=== PATIENT | female | born 1930 | race Caucasian/White ===

== ENCOUNTER 2017-02-19 17:54 | Inpatient (IN) | payer OTHER, BC ==
[~2017-02-19] VITALS: Ht 154.9 cm; Wt 83.5 kg
--- NOTE | ~2017-02-19 | EKG ---
[address] [place] [address] ELECTROCARDIOGRAM REPORT Name: LEVY PÉREZ Jocelyn Room #: 170-8 ADM IN M.R.#: [id number] Admission: 02/19/17 Attend Phys: Rocco Kendrick MD Discharge: Date of : 32 Report #: [id number] THIS REPORT FOR: //name// [facility] ED Test Date: 2017-02-19 Test Time: 19:23:23 Pat Name: LEVY PÉREZ Department: Room: 170 Gender: F High School Mathematics Teacher: MZOOK : [id number] Requested By: Shawn Valenzuela Order Number: [id number] MD: Robbie Vasquez Measurements Intervals [place] Rate: 78 P: -39 SC: 169 QRS: 152 QRSD: 95 T: 51 QT: 392 QTc: 447 Interpretive Statements Sinus rhythm Abnormal R-wave progression, late transition Inferior infarct, old Lateral leads are also involved Compared to ECG 03/23/2016 09:20:17 Left posterior fascicular block no longer present Myocardial infarct finding still present Electronically Signed On 02-19-2017 23:28:47 AFTER SCHOOL TUTOR by Robbie Vasquez [email or web address] <ELECTRONICALLY SIGNED> By: Robbie Vasquez MD 02/19/17 2328 22 22 Robbie Vasquez MD /EPI
[~2017-02-19 17:54] MED LIST: ACETAMINOPHEN325 M1 PO; AMLODIPINE BESY10 MG PO; ANTI-DIARRHEAL2 M1 PO; ASPIR 8181 MG PO; B12INJ PO; BENADRYL25 MG PO; BISAC-EVAC10 MG RECTAL; CELEXA 10 MG TA10 M1 PO; CRANBERRY500 M1 PO; DUONEB 2.5-0.5 M3 ML INH; FLORANEX PACKET1 GM PO; HEPARIN 50500 UNIT/5 SUBQ; LISINOPRIL10 MG PO; LISINOPRIL20 MG PO; LOPERAMIDE 2 MG2 M1 PO; LOPRESSOR25 PO; METFORMIN HCL500 MG PO; MILK OF MA2400 MG/10 PO; MIRALAX17 GM PO; MUCINEX TA600 MG/TA2 PO; NORCO 5-325 TA1 EACH PO; OXYBUTYNIN 5 MG5 M2 PO; PREDNISONE 10 M10 MG PO; PRILOSEC2.5 MG PO; PRILOSEC20 MG PO; PROSTATE 2.4 C1 EACH; SENEXON-S TABL1 EACH PO; THEREMS-M1 EACH PO; TRAZODONE HCL100 MG PO; VITAMIN D1000 UNI1 PO; VITAMIN D3400 UNIT PO
[2017-02-19 17:56] VITALS: BP 159/90
[2017-02-19] MEDS ORDERED: ZANTAC 150MG T150 MG PO (18:15)
[2017-02-19] MEDS ORDERED: COLACE100 MG PO (18:16)
[2017-02-19] MEDS ORDERED: METFORMIN HCL500 MG PO (18:17)
[2017-02-19] MEDS ORDERED: FIBER0.4 GM PO (18:19)
[2017-02-19 18:46] LABS: ABSOLUTE NEUTROPHILS 6.6 thou/uL (1.4-8.2); BASOPHILS 0.8 % (0.0-2.0); EOSINOPHILS 0.8 % (0.0-3.0); HEMATOCRIT 39.4 % (37.0-47.0); HEMOGLOBIN 13.2 gm/dL (12.0-15.0); LYMPHOCYTES 20.6 % (24.0-44.0); MCH 32.5 pg (26.0-34.0); MCHC 33.6 g/dL (28.0-37.0); MCV 96.9 fL (80.0-100.0); MONOCYTES 6.8 % (1.0-8.0); PLATELET COUNT 343 thou/uL (150-400); RBC 4.07 mil/uL (4.20-5.00); RDW 13.6 % (10.5-14.5); WBC 9.3 thou/uL (4.0-11.0)
[2017-02-19 18:53] LABS: URINE BILIRUBIN NEGATIVE (Negative); URINE BLOOD NEGATIVE (Negative); URINE CLARITY CLEAR; URINE COLOR YELLOW; URINE GLUCOSE-RANDOM* NEGATIVE (Negative); URINE KETONES TRACE (Negative); URINE LEUKOCYTES-REFLEX NEGATIVE (Negative); URINE PROTEIN (DIPSTICK) TRACE (Negative); URINE SPECIFIC GRAVITY 1.025 (1.005-1.035); URINE UROBILINOGEN 0.2 E.U./dl (0.2-1.0)
[2017-02-19 18:54] LABS: URINE NITRITE-REFLEX POSITIVE (Negative)
[2017-02-19 18:56] LABS: ANION GAP 10 mmol/L (7-16); BUN 12 mg/dL (7-18); CALCIUM 9.7 mg/dL (8.5-10.1); CHLORIDE 103 mmol/L (98-107); CO2 26 mmol/L (21-32); GLUCOSE 182 mg/dL (74-106); SODIUM 139 mmol/L (136-145)
[2017-02-19 19:04] LABS: TROPONIN-I < 0.04 ng/mL (<0.06)
[2017-02-19 19:06] LABS: BACTERIA-REFLEX >30 Many /HPF (None Seen); CASTS None Seen /LPF (None Seen); CRYSTALS None Seen /LPF (None Seen); SQUAMOUS 0-3 Few /LPF (0-3); URINE RBC None Seen /HPF (0-2); URINE WBC-REFLEX 0-5 Rare /HPF (0-5)
[2017-02-20 13:06] VITALS: BP 120/50
[2017-02-20 14:13] VITALS: BP 120/50
[2017-02-20 14:38] VITALS: BP 116/50
[2017-02-20 15:20] VITALS: BP 116/53
[2017-02-20 21:00] VITALS: BP 137/70
[2017-02-21 04:34] VITALS: BP 127/66
[2017-02-21 06:41] LABS: ABSOLUTE NEUTROPHILS 4.3 thou/uL (1.4-8.2); BASOPHILS 0.7 % (0.0-2.0); EOSINOPHILS 3.4 % (0.0-3.0); HEMATOCRIT 39.9 % (37.0-47.0); HEMOGLOBIN 13.1 gm/dL (12.0-15.0); LYMPHOCYTES 29.9 % (24.0-44.0); MCH 32.3 pg (26.0-34.0); MCHC 32.9 g/dL (28.0-37.0); MCV 98.2 fL (80.0-100.0); MONOCYTES 7.1 % (1.0-8.0); PLATELET COUNT 324 thou/uL (150-400); POLYS 58.9 % (36.0-66.0); RBC 4.06 mil/uL (4.20-5.00); RDW 13.7 % (10.5-14.5); WBC 7.3 thou/uL (4.0-11.0)
[2017-02-21 06:49] LABS: CALCIUM 8.9 mg/dL (8.5-10.1); CREATININE 1.2 mg/dL (0.6-1.0); POTASSIUM 4.1 mmol/L (3.5-5.1)
[2017-02-21 08:35] VITALS: BP 166/65
[2017-02-21 11:56] LABS: TSH 0.814 uIU/mL (0.358-3.740)
[2017-02-21 14:55] VITALS: BP 121/49
[2017-02-21 19:47] VITALS: BP 144/55
[2017-02-22 03:46] VITALS: BP 144/62
[2017-02-22 06:12] LABS: CALCIUM 8.8 mg/dL (8.5-10.1); CREATININE 0.9 mg/dL (0.6-1.0); POTASSIUM 4.1 mmol/L (3.5-5.1)
[2017-02-22 06:34] LABS: ABSOLUTE NEUTROPHILS 4.8 thou/uL (1.4-8.2); BASOPHILS 0.6 % (0.0-2.0); EOSINOPHILS 2.1 % (0.0-3.0); HEMOGLOBIN 12.1 gm/dL (12.0-15.0); LYMPHOCYTES 29.1 % (24.0-44.0); MCHC 33.7 g/dL (28.0-37.0); MCV 97.8 fL (80.0-100.0); MONOCYTES 5.9 % (1.0-8.0); PLATELET COUNT 315 thou/uL (150-400); POLYS 62.3 % (36.0-66.0); RBC 3.68 mil/uL (4.20-5.00); RDW 13.1 % (10.5-14.5); WBC 7.8 thou/uL (4.0-11.0)
[2017-02-22 08:00] VITALS: BP 184/104
[2017-02-22] MEDS ORDERED: KEFLEX500 M1 PO (08:44)
[2017-02-22 10:05] VITALS: BP 144/62
== END 2017-02-22 10:49 | DRG 871 ==
LOC: ER 17:54 → EROBS 21:06 → 4E 21:06 → EROBS 02-20 01:45 → 4E 02-20 14:55
PROVIDERS: Emergency Medicine; Family Medicine; Registered Nurse
DX: A41.9 Sepsis, unspecified organism (principal); G92 Toxic encephalopathy; N39.0 Urinary tract infection, site not specified; Z96.652 Presence of left artificial knee joint; Z96.641 Presence of right artificial hip joint; E11.9 Type 2 diabetes mellitus without complications; I10 Essential (primary) hypertension; F32.9 Major depressive disorder, single episode, unspecified; Z88.8 Allergy status to other drugs, medicaments and biological substances; Z79.899 Other long term (current) drug therapy; Z28.21 Immunization not carried out because of patient refusal
CPT/HCPCS: 10084

== ENCOUNTER 2019-01-18 18:56 | Emergency (ER) | payer OTHER, BC ==
[~2019-01-18] VITALS: Ht 160 cm; Wt 78.7 kg
[~2019-01-18 18:56] MED LIST changes: +COLACE100 MG PO; +FIBER0.4 GM PO; +KEFLEX500 M1 PO; +ZANTAC 150MG T150 MG PO
[2019-01-18 19:21] LABS: URINE BILIRUBIN NEGATIVE (Negative); URINE BLOOD NEGATIVE (Negative); URINE CLARITY SL CLOUDY; URINE COLOR YELLOW; URINE GLUCOSE-RANDOM* NEGATIVE (Negative); URINE KETONES NEGATIVE (Negative); URINE LEUKOCYTES-REFLEX TRACE (Negative); URINE NITRITE-REFLEX POSITIVE (Negative); URINE PROTEIN (DIPSTICK) NEGATIVE (Negative); URINE SPECIFIC GRAVITY >= 1.030 (1.005-1.035); URINE UROBILINOGEN 0.2 E.U./dl (0.2-1.0)
[2019-01-18 19:29] LABS: SQUAMOUS 4-10 Moderate /LPF (0-3)
[2019-01-18 19:30] LABS: CASTS None Seen /LPF (None Seen); CRYSTALS None Seen /LPF (None Seen); URINE RBC None Seen /HPF (0-2); URINE WBC-REFLEX 0-5 Rare /HPF (0-5)
[2019-01-18 21:00] LABS: ABSOLUTE NEUTROPHILS 5.4 thou/uL (1.4-8.2); BASOPHILS 0.9 % (0.0-2.0); EOSINOPHILS 2.8 % (0.0-3.0); HEMATOCRIT 37.9 % (37.0-47.0); HEMOGLOBIN 12.4 gm/dL (12.0-15.0); LYMPHOCYTES 26.7 % (24.0-44.0); MCH 31.2 pg (26.0-34.0); MCHC 32.8 g/dL (28.0-37.0); MCV 95.2 fL (80.0-100.0); PLATELET COUNT 287 thou/uL (150-400); POLYS 64.6 % (36.0-66.0); RBC 3.98 mil/uL (4.20-5.00); RDW 13.3 % (10.5-14.5); WBC 8.3 thou/uL (4.0-11.0)
[2019-01-18 21:09] LABS: CALCIUM 9.6 mg/dL (8.5-10.1); POTASSIUM 4.2 mmol/L (3.5-5.1)
[2019-01-18 21:15] LABS: ALBUMIN 3.4 g/dL (3.4-5.0); DIRECT BILIRUBIN 0.2 mg/dL (<0.1-0.3); TOTAL BILIRUBIN 0.4 mg/dL (<0.1-1.0); TOTAL PROTEIN 7.2 g/dL (6.4-8.2)
[2019-01-18] MEDS ORDERED: KEFLEX500 M1 PO (22:42)
[2019-01-18 23:11] VITALS: BP 142/61
== END 2019-01-19 00:42 | disposition home or self-care (01) ==
LOC: ER 18:56
PROVIDERS: Emergency Medicine
DX: N39.0 Urinary tract infection, site not specified (principal); R41.0 Disorientation, unspecified; I10 Essential (primary) hypertension; F32.9 Major depressive disorder, single episode, unspecified; Z96.652 Presence of left artificial knee joint; Z88.6 Allergy status to analgesic agent

== ENCOUNTER 2019-02-13 18:35 | Inpatient (IN) | payer OTHER, BC ==
[~2019-02-13] VITALS: Ht 160 cm; Wt 71.7 kg
[2019-02-13] MEDS ORDERED: ABILIFY 2 MG2 M1 (19:20)
[2019-02-13] MEDS ORDERED: NORVASC10 MG (19:21)
[2019-02-13] MEDS ORDERED: TRAZODONE HCL100 MG (19:22)
[2019-02-13] MEDS ORDERED: LISINOPRIL2.5 MG (19:25)
[2019-02-13 19:48] VITALS: BP 110/44
[2019-02-13 20:00] VITALS: BP 134/72
[2019-02-13 20:01] VITALS: BP 134/78
--- NOTE | 2019-02-13 20:03 | NUR ---
89 YEAR OLD FEMALE ARRIVES TO FLOOR VIA OWN WC ACCOMONIED BY GREENHOUSE OR NURSERY TRANSPLANTER FROM [facility] AT APPROX 1830. IS REPORTED BY HALF-WAY STAFF TO HAVE APPROACHED NURSE ON UNIT STATING "TAKE ME TO THE HOSPITAL I WANT TO " ALSO REPORTED BY HALF-WAY STAFF TO HAVE HAD RECENT MEDICATION REFUSALS AND MADE DELUSIONAL STATEMENTS REGARDING DAUGHTER NIKKI WHO IS DPOA STATING SHE DOESN'T TRUST HER DAUGHTER AND WANTS HER REMOVED FROM PAPERWORK" UPON ARRIVAL TO UNIT IS COOPERATIVE AND PLEASANT DIS HAVE BRIEF EPISODE OF TEARFULNESS STATING "I AM REALLY SICK" WHEN ASKED FOR CLARIFICATION IF THIS WAS PHYSICAL OR MENTAL STATES "NO IT IS NOT MENTAL-I TOLD THEM THAT I WAS DYING SOMETHING IS REALLY WRONG WITH ME NOT THAT I WANTED TO " DENIES ANY CURRENT SI/SH/HI STATING "I BELIEVE IN GOD TOO MUCH" IS ORIENTED TO PERSON AND PLACE AND CONVERSATION IS RELEVENT AND GOAL DIRECTED. VS OBTAINED AND WNL-ASSISTED TO STANDING POSITIONO WITH ASSIST OF TWO AND COCYX ASSESSED PT IS REPORTING PAIN TO BOTTOM-MIDLINE COCYX IS NOTED TO BE EXCORIATED SOME REDDNESS AND AFTER PT VOIDED PERICARE PROVIDED AND BARRIER CREAM APPLIED. DENIES ANY OTHER C/O PAIN/DISCOMFORT-PT STATES UNABLE TO SIGN PAPERWORK AND CONSENTS D/T POOR VISIOIN SO VERBAL CONSNETS OBTAINED FOR TX IN ADDITION TO VISITING CONSENT,RIGHTS AND RESPONSIBILIES REVIEWED WITH PT.
--- NOTE | 2019-02-14 02:30 | NUR ---
ASSUMED CARE FROM DAY SHIFT PT RESTING IN BED, APPEARS CHEERFUL, ALERT ORIENTED X4 , SAT DOWN BEDSIDE PT AND TAKLED WITH PT RERGARDING FEELING OF WANTING TO . PT STATES " DAUGHTER HAVE NOT HAD A RELATIONSHIP WITH HR 40 YEARS AND SHE HAVE BEEN LIVING IN 3 DIFFERENT NURSING HOMES AND HAVE NO FAMILY SUPPORT WHICH MAKES HER VERY DEPRESSED AND INTURN WANT TO ". PT HAVE NO PLAN ON HOW TO CARRY OUT SI, BUT KNOW SHE DONT WANT O LIVE ANY LONGER. PT ALSO EXPRESSED THAT SHE DID NOT WANT DAUGHETR HR DPOA AND WANT TO CHANGE IT TO HER BROTHER SHE THINKS? ENCOUAGEMENT GIVEN AND DISCUSSED PLAN OF CARE, HS PO MEDICATION TAKEN , REFUSED HS SNACK. PT HAVE ASHBY AT SIDE DUE TO SHE IS WHEELCHAIR BOUND. BED ALARM ON FOR SAFETY, PT IN AGREEMENT. WILL WONTINUE WITH FREQ CHECKS FOR SAFETY AND REPORT CHANGES OR ABNORMAL FINDINGS. PT APPREAS TO BE RESTING QUIELTY THROUGHOUT CHECKS.
[2019-02-14 08:14] VITALS: BP 132/67
--- NOTE | 2019-02-14 08:57 | NUR ---
PT REFUSING MEDICATIONS AT THIS TIME. PT STATED THEY ARE WORKING AGAINST HER. SHE STATED SHE GETS DIARRHEA. SHE STATED THAT SHE IS FRUSTRATED AND WANTED TO TALK TO THE DR. PT STAED SHE ISN'T GETTING ANY ANSWERS. PT WOULD LIKE TO HAVE HER DAUGHTER OFF HER DPOA AND NEEDS EVAL. TO SEE IF SHE CAN MAKE THAT DECISION. PT STATED SHE HASN'T TALKED TO HER DAUGHTER IN 40 YEARS. PT STATED SHE IS WORRIED ABOUT THE MEDS. PT STATED SHE REFUSED MEDS BEFORE A BEAUTIFUL SAVIOR.
--- NOTE | 2019-02-14 09:16 | NUR ---
FAUSTO called and spoke with pt's critical access hospital Sheryl [phone] and she stated that her mom has lived at [facility] for 3 years and is expected to d/c back there once she is stable. This pt has had 2 recorded depressive episodes in the last 40 years. Sheryl stated that she usually has a positive relationship with her mother but when she is sick or has a UTI she becomes paranoid, aggressive and especially angry directed at Sheryl. FAUSTO completed the intake assessment and TP. Fausto set up a family meeting on 02/18 at 11:45 am.
[2019-02-14 09:57] VITALS: BP 132/67
--- NOTE | 2019-02-14 13:06 | NUR ---
ENCOURAGED PT TO EAT LUNCH. PT STATED SHE WANTED TO SPEAK TO PSYCHOLOGIST. PT STATED SHE HAS HAD TO BE PERSISTANT TO GET THINGS TO HAPPEN LIKE NOW NOT EATING UNTIL SHE TALKS TO DR. PT STATED SHE GETS UPSET. PT DID DRINK TEA AND FRUIT.
--- NOTE | 2019-02-14 13:55 | EKG ---
[place] [address] [facility] [place] [address] ELECTROCARDIOGRAM REPORT Name: LEVY PÉREZ Room #: 52- ADM IN M.R.#: [id number] Admission: 02/13/19 Attend Phys: Rocco Hensley DO Discharge: Date of : 32 Report #: [id number] THIS REPORT FOR: //name// [facility] Test Date: 2019-02-14 Test Time: 13:47:28 Pat Name: ELVY PÉREZ Department: Room: [facility] B Gender: F Foundation Engineer: Lin REID : [id number] Requested By: Rocco Hensley Order Number: [id number] MD: Marvin Penny Measurements Intervals [place] Rate: 75 P: 5 NC: 182 QRS: 141 QRSD: 98 T: 39 QT: 396 QTc: 443 Interpretive Statements Sinus rhythm Abnormal R-wave progression, late transition Inferior infarct, old Compared to ECG 02/19/2017 19:23:23 No significant changes Electronically Signed On 02-14-2019 13:54:37 DIRECTOR HR COMMUNICATIONS by Marvin Penny [email or web address] <ELECTRONICALLY SIGNED> By: Marvin Penny MD, [facility] 02/14/19 1354 1347 1347 Marvin Penny MD, [facility] /EPI
[2019-02-14 14:23] LABS: ABSOLUTE NEUTROPHILS 7.4 thou/uL (1.4-8.2); BASOPHILS 0.7 % (0.0-2.0); EOSINOPHILS 1.5 % (0.0-3.0); HEMOGLOBIN 14.4 gm/dL (12.0-15.0); LYMPHOCYTES 23.8 % (24.0-44.0); MCH 31.8 pg (26.0-34.0); MCHC 33.4 g/dL (28.0-37.0); MCV 95.2 fL (80.0-100.0); MONOCYTES 5.4 % (1.0-8.0); PLATELET COUNT 264 thou/uL (150-400); POLYS 68.6 % (36.0-66.0); RBC 4.51 mil/uL (4.20-5.00); WBC 10.8 thou/uL (4.0-11.0)
[2019-02-14 14:46] LABS: CALCIUM 9.8 mg/dL (8.5-10.1); CREATININE 1.3 mg/dL (0.6-1.0); POTASSIUM 4.4 mmol/L (3.5-5.1)
[2019-02-14 14:52] LABS: ALBUMIN 3.7 g/dL (3.4-5.0); TOTAL BILIRUBIN 0.4 mg/dL (<0.1-1.0); TOTAL PROTEIN 7.9 g/dL (6.4-8.2)
--- NOTE | 2019-02-14 17:09 | NUR ---
ATTEMPTED TO OBTAIN A UA ON PT VIA CLEAN CATCH. PT ALREADY VOIDED IN BRIEF. PT SAT ON BSC FOR 10 MIN TO TRY TO VOID. PT HAD SOME GAS.
--- NOTE | 2019-02-14 17:15 | NUR ---
PT REFUSING NAMENDA WITH A BIG NO. PT STATED THERE IS OTHER MEDICATION FOR MEMORY. PT STILL TALKING ABOUT NOT TALKING FOR DAUGHTER FOR 40 YRS.
--- NOTE | 2019-02-14 17:24 | NUR ---
PT NOT WANTING TO EAT DINNER. INFORMED PT ABOUT GETTING URINE SAMPLE VIA CATHATER. PT STATED FINE FOR CATHATER TO OBTAIN URINE.
--- NOTE | 2019-02-14 18:00 | NUR ---
PT DIDN'T EAT ANY DINNER. PT TOOK BACK TO ROOM AND A URINE WAS OBTAINED VIA STRAIGHT CATH. PT TOLERATED WELL. PT STATED THE BETADINE WAS COLD. PT STATED THAT SHE HAS BEEN TELLING PEOPLE SHE HAS UTI. PT URINE WAS YELLOW WITH SEDIMENT AND STRONG URINE SMELL.
[2019-02-14 18:27] LABS: URINE BILIRUBIN NEGATIVE (Negative); URINE BLOOD 2+ (Negative); URINE COLOR YELLOW; URINE GLUCOSE-RANDOM* NEGATIVE (Negative); URINE KETONES TRACE (Negative); URINE PROTEIN (DIPSTICK) NEGATIVE (Negative); URINE UROBILINOGEN 0.2 E.U./dl (0.2-1.0)
[2019-02-14 18:28] LABS: URINE LEUKOCYTES-REFLEX 3+ (Negative); URINE NITRITE-REFLEX POSITIVE (Negative)
[2019-02-14 18:29] LABS: URINE CLARITY HAZY
[2019-02-14 18:39] LABS: CASTS None Seen /LPF (None Seen); CRYSTALS None Seen /LPF (None Seen); SQUAMOUS 0-3 Few /LPF (0-3); URINE RBC None Seen /HPF (0-2)
--- NOTE | 2019-02-14 18:44 | NUR ---
NOTIFED DR. GARCIA ABOUT URINE RESULTS.
[2019-02-14 20:17] LABS: TSH 1.803 uIU/mL (0.358-3.740)
[2019-02-14 22:25] VITALS: BP 130/76
--- NOTE | 2019-02-15 01:47 | NUR ---
PATIENT IN BED WHEN CAME ON UNIT AT 1900. SHE IS IRRITABLE TONIGHT AND TALKS IN CIRCLES. SHE TOOK HER MEDS EVEN THOUGH SHE DIDN'T WANT TOO. SHE UNDERSTANDS SHE HAS AN UTI BUT SAYS SHE DOESN'T THINK THE ANTIBIOTIC WILL WORK FOR HER. PATIENT IS INCONTINENT OF B&b. PATIENT USES WC. SHE DENIES PAIN. DOES NOT WANT TO KEEP HER YELLOW SOCKS ON WHEN SLEEPING. A/0 X 3. WENT BACK TO SLEEP AFTER PILLS GIVEN. BED IN LOW POSITON AND BED ALARM ON.
[2019-02-15 07:40] VITALS: BP 103/52
--- NOTE | 2019-02-15 07:45 | NUR ---
PT IN BED AWAKE. PT CONCERNED ABOUT THE UTI AND NEEDING ANTIBIOTICS. PT NEEDED ASSIST TO W/C X2 PERSON. PT ABLE TO BEAR WEIGHT AND PIVOT. PT STILL TALKING ABOUT NOT TALKING TO DAUGHTER FOR 40 YEARS. PT STATED SHE WILL BRING CLOTHES TO HER, BUT NOT TALK TO HER. PT STATED HER DAUGHTER WAS WITH A DRThony AND SOMEONE ELSE IN ONE DAY. PT UPSET AND STATED SHE IS GROWING TO NOT WANT TO TALK TO HER DAUGHTER. PT KNOWS ABOUT THE FAMILY MEETING ON 02/18. ENCOURAGED PT TO EXPRESS HER FEELINGS TO ADVANCED PRACTICE NURSE PSYCHOTHERAPIST AND IN MEETING.
[2019-02-15 07:54] VITALS: BP 103/52
--- NOTE | 2019-02-15 08:50 | NUR ---
PT ASKING ABOUT HER MEDICATION. TRIED TO ADM WHOLE, PT STATED SHE TAKES IN YOGART. CRUSHED MEDS AND PUT IN YOGART. PT STATED THAT SHE KNOWS THERE IS MORE THAN ANTIBIOTIC IN THE YOGART. PT TOOK WITHOUT ANY ISSUES.
--- NOTE | 2019-02-15 16:49 | NUR ---
PT HAS BEEN RESTING SINCE PT HAD US. ATTEMPTED PT TO VOID DURING US. PT UNABLE TO VOID ON OWN. PT STATED THEN SHE WANTED TO REST IN BED INSTEAD OF SITING UP.
--- NOTE | 2019-02-15 16:57 | NUR ---
PT TOOK SPOONFUL OF SEROQUEL 50MG IN PUDDING WITH ASSISTANCE FROM BOOKKEEPER HELEN.
--- NOTE | 2019-02-15 17:15 | NUR ---
PT SITTING AT DINNER TABLE AND DIDN'T WANT TO EAT. ENCOURAGED PT TO EAT SOME YOGART WITH HER MEDS. DIDN'T GIVE GLIPIZIDE DO TO NOT EATING.
[2019-02-15 19:53] VITALS: BP 157/57
[2019-02-16 03:07] LABS: GLYCOHEMOGLOBIN (HGB A1C) 6.3 % (4.8-5.6)
--- NOTE | 2019-02-16 03:51 | NUR ---
care assumed at 1900 patient was in bed awake. patient took meds with alot of encouragement. patient encouraged fluids. patient has a flat affect, poor eye contact, fair grooming and hygiene. patient incontient this shift pericare and barrier cream applied as needed. patient uses a wheelchair. patient needs maximum assistance with adl, bed mobility transfer and toileting. patient in bed asleep at this time breathing regular and unlaboured.
[2019-02-16 05:16] LABS: CALCIUM 9.3 mg/dL (8.5-10.1); CREATININE 1.3 mg/dL (0.6-1.0); POTASSIUM 4.3 mmol/L (3.5-5.1)
[2019-02-16 09:27] VITALS: BP 113/48
--- NOTE | 2019-02-16 13:39 | NUR ---
Was up this morning in dayroom, she ate a few bites of her breakfast, offered yogurt which she did eat, she took most of her medications but refused namenda, antibiotics and stool softner, when questioned why she stated she is just concerned about these drugs, also stated "you are making me worse with this medicine, I wasn't on any of it, and I'm not taking it" made other attempts to get her antibiotics which she still refused, even after explaining her UTI, she just stated "I don't care" she has asked and stated she wants to today, she says she is old and doesn't want to live any longer, she does well answering questions, she is alert and oriented x 2, but say the date on the dry erase board, she refused lunch stated she was not hungry, no signs of AVH, she is flat and depressed in mood. Spoke with Dr. Matamoros about antibiotic concerns and her refusal to take abx. Continue to monitor for safety and behaviors.
[2019-02-16 16:47] LABS: URINE BILIRUBIN NEGATIVE (Negative); URINE BLOOD NEGATIVE (Negative); URINE CLARITY CLEAR; URINE COLOR YELLOW; URINE GLUCOSE-RANDOM* NEGATIVE (Negative); URINE KETONES NEGATIVE (Negative); URINE NITRITE-REFLEX NEGATIVE (Negative); URINE PROTEIN (DIPSTICK) NEGATIVE (Negative); URINE SPECIFIC GRAVITY 1.015 (1.005-1.035); URINE UROBILINOGEN 0.2 E.U./dl (0.2-1.0)
[2019-02-16 16:48] LABS: URINE LEUKOCYTES-REFLEX 1+ (Negative)
[2019-02-16 16:54] LABS: CASTS None Seen /LPF (None Seen); SQUAMOUS >10 Many /LPF (0-3); YEAST-REFLEX Present (None Seen)
[2019-02-16 16:55] LABS: BACTERIA-REFLEX None Seen /HPF (None Seen); CRYSTALS None Seen /LPF (None Seen); URINE RBC None Seen /HPF (0-2); URINE WBC-REFLEX 6-15 Few /HPF (0-5)
[2019-02-16 20:28] VITALS: BP 122/51
--- NOTE | 2019-02-17 01:51 | NUR ---
ASSUMED CARE FROM DAY SHIFT, PT FOUND LYING IN BED VERY AGITATED, PT STATES SHE DONT TO BE HERE ANYMORE, AND WANTED TO BE LEFT ALONE. PT AGREED TO BLOOD GLUCOSE TEST AND TO HS MEDIATION BUT REFUSED HS SNACK. PT REQUESTED TO JUST LET HER SLEEP AND LEFT ALONE.BED ALARM ON FOR SAFETY AND FREQ CHECKS PER PROTOCOL. PT APPEARS TO SLEEPING QUIETLY THROUGHOUT ROUNDING. WILL REPORT CHANGES OR ABNORMAL FINDINGS.
[2019-02-17 09:23] VITALS: BP 138/51
--- NOTE | 2019-02-17 09:27 | H ---
[facility] [place] [address] HISTORY AND PHYSICAL Name: LEVY PÉREZ Room #: 523B-B ADM IN M.R.#: [id number] Admission: 02/13/19 Attend Phys: Rocco Hensley DO Discharge: Date of : 32 Report #: [id number] THIS REPORT FOR: //name// CC: Rocco Hensley [facility] DATE OF SERVICE: 02/14/2019 INPATIENT PSYCHIATRIC EVALUATION ATTENDING PHYSICIAN: Rocco Hensley DO. BAR BACK: Arelis Matamoros MD REASON FOR ADMISSION: Sent from [facility] having suicidal thoughts. HISTORY OF PRESENT ILLNESS: An 89-year-old female , sent from [facility] having suicidal thoughts, making paranoid statements, seen by Dr. Naylor there. The suicidal ideations happened mid-January. The patient has been plagued recently with recurrent UTIs. She was seen medically here 01/18/2019. ADDITIONAL BACKGROUND: She has a history of a right hip replacement, falls in the past. PAST MEDICAL HISTORY: Bimalleolar fracture of left ankle, elevated lactic acid level, fracture of left ankle, hypoxia, UTI, weakness. She is allergic to MECLOCYCLINE. CT scan of the head done in 02/2017, which is a while back, had no acute process. More recent eval from 01/18/2019 included a left knee replacement in 06/2014, right hip in 2013, diabetes mellitus, hypertension. Fractured left wrist in 11/2014, multiple places fractured. HOME MEDICATIONS: Abilify 2 mg p.o. daily, amlodipine 10 mg p.o. daily, Asper-Flex cream, donepezil 10 mg p.o. daily, lisinopril 40 mg p.o. daily, Tylenol daily, Mobic 15 mg p.o. daily, metformin 1000 mg oral 2 times a day, metoprolol tartrate 50 mg 2 times a day, Namenda 10 mg by mouth 2 times a day, trazodone 100 mg at bedtime, Wellbutrin-XL 150 mg p.o. daily. I reached out her DPOA Sheryl Rojas, . ADDITIONAL HISTORY OF PRESENT ILLNESS: The patient reports it has been anywhere from 2-3 years since she has talked to her daughter. Looks like in November, Dr. Connor changed therapy from Zoloft to Wellbutrin and in January started Abilify. [address] [address] HISTORY AND PHYSICAL Name: LEVY PÉREZ Room #: 523B-B [facility] IN ..#: [id number] Admission: 02/13/19 Attend Phys: Rocco Hensley DO Discharge: Date of : 32 Report #: [id number] SOCIAL HISTORY: The patient states she has a high school education. Denies physical, sexual or emotional abuse. Denies tobacco, alcohol or recreational drug use. PHYSICAL EXAMINATION: VITAL SIGNS: Temperature 36.5, pulse 78, respirations 18, BP 132/67, O2 sat 95%. LABORATORY DATA: CBC is normal except segmented neutrophils 68.6%, lymphocytes 23.8%. Chemistry: Creatinine slightly high at 1.3, BUN 21, glucose 153, albumin 3.7, ALT 24, AST 20, calcium 9.8. Sodium 136, potassium 4.4, carbon dioxide 25. Still waiting on the urine sample. TSH checked on 02/21/2018 at 0.184. Vitamin D level from way back in 02/2017 at 27.6. B12 of 725. I will check with her DPOA if those labs have been checked, otherwise, we may repeat enlisted mentioned. FORMULATION: An 89-year-old female admitted with suicidal ideation which she still has, she would jump off stairs or building. ASSESSMENT: Unspecified depression, major neurocognitive disorder with behavioral disturbance. Comorbidities are numerous including hypertension, osteoarthritis. PLAN: Evaluate, stabilize, obtain collateral. I will go ahead and start her on 0.5 mg of Haldol twice a day for clearing bit of delirium and help with impulse control. ESTIMATED LENGTH OF STAY: 10-14 days. Time spent on interview, review of records, coordination of care is at least 60 minutes. STRENGTHS: She is insured. She has supportive family. WEAKNESSES: Advancing age, major neurocognitive disorder, other morbidities. <ELECTRONICALLY SIGNED> By: Rocco Hensley DO 02/17/19 0927 1644 1719 Rocco Hensley, /nt
--- NOTE | 2019-02-17 19:25 | NUR ---
Lying supine in bed. States she just wants to . Denies active SI/HI. States she just doesn't want to be here. Alert and orientated X4. Initially stated that she didn't want to take meds but then agreed to take them crushed in pudding, "If I have to." Compliant with meds the rest of the day. Breath sounds clear t/o, bilaterally equal. Reg HR ausculated. Color pink with brisk capillary refill and palpable peripheral pulses. Active bowel sounds over soft, rounded abdomen. Incontinent of yellow urine and large, formed brown stool. No erathema noted in jorge a area. Needs assistance of 1 staff to transfer to . 1800 Multiple requests to speak with Dr. Hensley this afternoon. States she wants to go to bed. Able to reposition herself in bed with direction. OT/PT worked with her this afternoon. No s/o distress. Clotrimazole applie
[2019-02-17 19:51] VITALS: BP 99/49
--- NOTE | 2019-02-18 03:35 | NUR ---
ASSUMED CARE OF THIS PATIENT AT 1900 FOR HOUSEKEEPER NANNY. ON INITIAL APPROACH, SHE WAS PLEASANT COOPERATIVE WITH ASSESSMENT, THOUGH DID SAY SHE HAS A UTI AND DOESN'T FEEL VERY WELL. WHEN STAFF RETURNED WITH MEDS, SHE REFUSED REGARDLESS OF MUCH ENCOURAGEMENT BEING PROVIDED. PARANOID DELUSIONS THAT WE ARE TRYING TO KILL HER WITH THESE MEDS. EVENTUALLY BECAME LOUD AND UPSET. DR GARCIA NOTIFIED OF REFUSAL TO TAKE HER MEDS, AND ORDERED HALDOL 4MG WITH ATIVAN 0.5MG IM, WHICH WAS ADMINISTERED. NO C/O PAIN. NO APPARENT DISTRESS. WILL CONTINUE TO MONITOR
[2019-02-18 07:30] VITALS: BP 95/52
[2019-02-18 11:46] VITALS: BP 163/67
--- NOTE | 2019-02-18 12:18 | NUR ---
AT 0710 ASSUMED CARE OF PATIENT ON 02/18/19. PATIENT SITTING IN WHEELCHAIR IN DAYROOM WITH EYES CLOSED. PATIENT RESPONDS WHEN NAME CALLED. DENIES PAIN, DENIES SI/HI AND AVH. WATCHING TV AT THIS TIME WAITING FOR BREAKFAST. WHEN ASKED PATIENT FOR A GOAL FOR THE DAY PATIENT STATES " I DO NOT HAVE ONE, I JUST WANT TO BE ALONE". AFTER STATEMENT PATIENT DID NOT WANT TO TALK MUCH. AT 0730 BLOOD SUGAR 127- NO INSULIN GIVEN
--- NOTE | 2019-02-18 13:27 | NUR ---
Fausto and Dr mcintyre met with pt's dght for the famimly meeting. She was provided with meds list and labs. Discussed d/c plans back to [facility] and a request for a daily visit from a is architect. Fausto sent an email to the molding manager depart requesting this. Pt's dght is satisfied with the care and understands the process.
[2019-02-18 15:07] VITALS: BP 95/52
--- NOTE | 2019-02-18 16:18 | NUR ---
1600 PATIENT CONTINUES TO LAY IN BED SLEEPING DOES WAKE UP WHEN NAME CALLED. BLOOD SUGAR CHECKED WITH RESULTS OF 101 mg/dL.
[2019-02-18 19:56] VITALS: BP 155/58
--- NOTE | 2019-02-19 03:21 | NUR ---
ASSUMED CARE OF THIS PT AT 1900. REMAINS PARANOID, FEELING STAFF IS TRYING TO KILL HER. ISOLATING TO ROOM ENTIRE SHIFT. PROFOUNDLY DEPRESSED. REFUSED HS MEDS AND RECIEVED PRN MEDS IM ORDERED. IRRITABLE, ANXIOUS, ANGRY. NO APPARENT PHYSICAL DISTRESS. WILL CONTINUE TO MONITOR
--- NOTE | 2019-02-19 07:30 | NUR ---
ASSUMED CARE OF PATIENT THIS AM. PATIENT SITTING IN MILEU IN WHEELCHAIR. PATIENT SLEEPING BUT WAKES UP WITH VERBAL STIMULATION. PATIENT TAKES MEDICATIONS CRUSHED IN ICE CREAM. PATIENT CALM AND COOPERATIVE. AFFECT RELAXED. PATIENTS ASSESSMENT SHOWS CLEAR BREATH SOUNDS DIMINISHED IN THE BASES, ACTIVE BOWEL SOUNDS, AND S1 S2 HEARD WITH AUSCULTATION.
[2019-02-19 08:00] VITALS: BP 130/70
[2019-02-19 08:55] VITALS: BP 130/70
--- NOTE | 2019-02-19 13:53 | NUR ---
AJAY sent updates to [facility].
--- NOTE | 2019-02-19 16:44 | NUR ---
Date of Admission: 02/13/19 Date of Activity Therapy Assessment: 02/15/2019 Activity Goal: One group per day Initial Goal:Pt to attend at least one recreation therapy gropu per day to increase leisure awareness and build positive coping skills to utilize during times of frustration and feelings of sadeness. Weekly progress towards goal: Did not achieve (partly due to minimal groups offered-staffing issue.) Group participation level: moderate Behaviors observed: Pt will engage in groups she is interested in. Pt appears to isolate unless engaged. Plan: No change towards goal
[2019-02-19 18:14] LABS: CALCIUM 10.5 mg/dL (8.5-10.1); CREATININE 1.5 mg/dL (0.6-1.0); POTASSIUM 5.2 mmol/L (3.5-5.1)
[2019-02-19 19:15] VITALS: BP 133/63
[2019-02-19 19:36] VITALS: BP 150/53
--- NOTE | 2019-02-19 21:36 | NUR ---
IV INSERTED INTO PATIENT R FOREARM. 1ST ATTEMPT SUCCESSFUL. PATIENT TOLERATED WELL WITH ONLY A FEW GROANS.
[2019-02-19 22:41] VITALS: BP 150/53
--- NOTE | 2019-02-20 03:15 | NUR ---
PT IN ROOM AND RESTING AT BEGINNING OF EVENING. COOPERATIVE WITH ASSESSMENT AND TOOK HS MEDS ORDERED. ELEVATED BUN,CREATININE,AND CALCIUM. ORDERED ONE LITER OD 0.9 NORMAL SALINE, TO RUN AT 250/HR. FLUIDS INFUSED AND IV DCED. PT HAS SLEPT WELL THROUGH THE NIGHT
--- NOTE | 2019-02-20 07:30 | NUR ---
Assumed care of patient this am. Patients affect flat. Patient appears to be very depressed. Patient is in a wheelchair. Patient can take medications whole. Patient is very soft spoken and states that medications scare her. Patients assessment shows clear breath sounds, active bowel sounds, and s1 s2 heard with auscultation. Will continue to monitor.
[2019-02-20 08:00] VITALS: BP 129/57
[2019-02-20 08:35] VITALS: BP 129/57
--- NOTE | 2019-02-20 08:50 | EKG ---
[place] [address] [address] [place] [address] ELECTROCARDIOGRAM REPORT Name: GEELEVY DIA Room #: 52-B ADM IN M.R.#: [id number] Admission: 02/13/19 Attend Phys: Rocco Hensley DO Discharge: Date of : 32 Report #: [id number] THIS REPORT FOR: //name// [facility] Test Date: 2019-02-19 Test Time: 17:52:17 Pat Name: LEVY PÉREZ Department: Room: [facility] B Gender: F Barrel Inspector: Jocelyn BROCK : [id number] Requested By: Rocco Hensley Order Number: [id number] MD: Marvin Penny Measurements Intervals [place] Rate: 60 P: -10 NE: 190 QRS: 251 QRSD: 114 T: 36 QT: 456 QTc: 456 Interpretive Statements Sinus rhythm Abnormal R-wave progression, late transition Inferior infarct, old Baseline wander in lead(s) III Compared to ECG 02/14/2019 13:47:28 No significant changes Electronically Signed On 02-20-2019 8:49:40 NETWORK SOLUTIONS ARCHITECT by Marvin Penny [email or web address] <ELECTRONICALLY SIGNED> By: Marvin Penny MD, [facility] 02/20/19 0849 1752 1752 Marvin Penny MD, [facility] /EPI
--- NOTE | 2019-02-20 09:00 | NUR ---
Patient refused morning medications. RN educated patient about the importance of adhearing to the prescribed medications.
--- NOTE | 2019-02-20 10:20 | NUR ---
Fausto completed chart review and witnessed pt sleeping in the group room. D/C is expected next week if there are significant improvements with her mood and behavior. Fausto will continue to support and communicate with pt's dght
[2019-02-20 19:32] VITALS: BP 150/64
--- NOTE | 2019-02-21 04:22 | NUR ---
ASSUMED CARE OF PT FROM DAY SHIFT PT SITTING UP IN CHAIR IN DAYROOM IV FLUIDS INFUSING WELL PER PUMP, PT IS WATCHED CLOSELY DURING THIS TIME OF RECIEVING FLUIDS FOR SAFETY. PT ONLY AGREED TO TAKE LOPRESSOR . SNACK EATEN BLOOD GLUCOSE WNL. PT ASSISTED TO BED AFTER FLUIDS COMPLETED. PT INCONINENT OF URINE , UNABLE TO OBTAINED URINE SAMPLE THIS SHIFT.
[2019-02-21 06:06] LABS: HEMATOCRIT 39.9 % (37.0-47.0); HEMOGLOBIN 12.8 gm/dL (12.0-15.0); MCHC 32.2 g/dL (28.0-37.0); MCV 96.4 fL (80.0-100.0); RBC 4.14 mil/uL (4.20-5.00); WBC 7.2 thou/uL (4.0-11.0)
[2019-02-21 06:16] LABS: CREATININE 0.9 mg/dL (0.6-1.0); MAGNESIUM 1.9 mg/dL (1.8-2.4); POTASSIUM 4.3 mmol/L (3.5-5.1)
[2019-02-21 08:30] VITALS: BP 143/60
--- NOTE | 2019-02-21 08:46 | NUR ---
PT TOOK MEDS CRUSHED IN YOGART. PT DIDN'T REFUSE MEDS. PT SEEMS DOWN TODAY. NOT TALKING WITH OTHERS, DOES CONVERSE WITH NURSE AND DR. PT STATED SHE DIDN'T HAVE A GOAL. PT STATED SHE HAS NOTHING TO DO. ASKED PT ABOUT PAINTING, PT STATED SHE DID PAINT THIS WEEK AND DIDN'T KNOW WHERE THE PAINTING WENT.
--- NOTE | 2019-02-21 10:32 | NUR ---
FAUSTO called [facility] [phone] and left a VM with admissions that pt was likely going to d/c on Sunday. Fausto then called and spoke with Sheryl [phone] about the d/c plan. She reported that she had called [facility] hospice and they woul dbe coming out to eval this pt when [place]. Sheryl is satisfied with this outcome.
[2019-02-21 10:36] VITALS: BP 143/60
--- NOTE | 2019-02-21 12:00 | NUR ---
PT DIDN'T WANT TO EAT LUNCH, PT WAS APPROACHED TWICE. PT REFUSED TO EAT.
--- NOTE | 2019-02-21 15:00 | NUR ---
ASSISTED GETTING PATIENT UP TO W/C. PT STATED SHE WASN'T DOING VERY GOOD. PT WAS INCON OF URINE, NO ODOR. PT ABLE TO TRANSFER TO W/C. GAVE PT FRESH WATER AND ALSO JELLO AND PUDDING. PT WANTED TO KNOW IF ANY MEDS IN PUDDING, THERE WAS NONE AT THIS TIME.
--- NOTE | 2019-02-21 15:38 | NUR ---
Fausto spoke with [facility] and they are willing to accept this pt back on 02/24 at 9am. Sw set up transportation with [facility] for 9am and then reported this to [facility]. Also made a packet and faxed updates.
--- NOTE | 2019-02-21 16:22 | NUR ---
PT WHEELING BACK INTO ROOM. PT STATED SHE WANTED TO LAY DOWN. GOT PT UP TO BSC X2 ASSIST. PT DID VOID 300ML AND SPECIMEN SENT TO LAB. PT WORRIED ABOUT TREATING THE UTI AND THAT SHE WILL BE GOING BACK TO [place] SOON.
[2019-02-21 16:50] LABS: URINE BILIRUBIN NEGATIVE (Negative); URINE BLOOD TRACE (Negative); URINE COLOR YELLOW; URINE GLUCOSE-RANDOM* NEGATIVE (Negative); URINE KETONES NEGATIVE (Negative); URINE NITRITE-REFLEX NEGATIVE (Negative); URINE PROTEIN (DIPSTICK) NEGATIVE (Negative); URINE SPECIFIC GRAVITY <= 1.005 (1.005-1.035); URINE UROBILINOGEN 0.2 E.U./dl (0.2-1.0)
[2019-02-21 16:52] LABS: URINE CLARITY SL HAZY; URINE LEUKOCYTES-REFLEX 3+ (Negative)
[2019-02-21 17:00] LABS: BACTERIA-REFLEX 1-9 Few /HPF (None Seen); CASTS None Seen /LPF (None Seen); CRYSTALS None Seen /LPF (None Seen); SQUAMOUS 0-3 Few /LPF (0-3); URINE RBC 0-2 Rare /HPF (0-2); URINE WBC-REFLEX 6-15 Few /HPF (0-5); YEAST-REFLEX Present (None Seen)
--- NOTE | 2019-02-21 17:00 | NUR ---
BLADDER SCANNED PT AFTER VOIDING 300ML, THERE WAS 67ML LEFT IN BLADDER.
[2019-02-21 19:52] VITALS: BP 130/55
--- NOTE | 2019-02-22 04:57 | NUR ---
PT RESTING IN BED WITH EYES CLOSED MOST OF SHIFT. PT TOOK MEDICATIONS CRUSHED IN PUDDING WITHOUT DIFFICULTY. PT WAS STARTED ON LEVOFLOXACIN TO BE TAKEN ONCE DAILY. MEDICATION WAS STARTED WITH ONE TIME DOSE THIS EVENING. NO C/O VOICED THIS SHIFT. WILL CONTINUE TO MONITOR PER PROTOCOL.
[2019-02-22 07:40] VITALS: BP 147/59
--- NOTE | 2019-02-22 15:37 | NUR ---
SW completed a chart review. Pt seems to conitnue this postive trend and is meds compliant. Still has some morbid thougths but denies SI. D/c is likely Sunday as planned.
--- NOTE | 2019-02-22 16:34 | NUR ---
PATIENT ORIENTED TO SELF AND SPENT MORNING IN DINING ROOM. WHEN ASKING PATIENT PREFERENCE QUESTIONS SHE SAYS SHE DOESN'T CARE. PATIENT HAD BM THIS AFTERNOON AND CREAM FOR RASH WAS PLACED ON GROIN AREA PER JOHN ELIZABETH. PATIENT STATES, RASH AREA STILL ITCHES. WILL CONTINUE WITH CREAM TO RASH. PATIENT SPENT SEVERAL HOURS IN BED THIS AFTERNOON AND STATES SHE DOES NOT WANT DINNER.
[2019-02-22 21:05] VITALS: BP 112/62
[2019-02-23 02:24] VITALS: BP 112/62
--- NOTE | 2019-02-23 05:34 | NUR ---
PT CALM ET COOPERATIVE THIS SHIFT. PT DENIES SI, HI, ET PSYCHOSIS. PT TOOK MEDICATIONS CRUSHED IN PUDDING WITHOUT DIFFICULTY. PT URINATED IN BED TWICE THIS SHIFT RESULTING IN BED CHANGE. NO BEHAVIORS NOTED THIS SHIFT. WILL CONTINUE TO MONITOR PER PROTOCOL.
[2019-02-23 09:07] VITALS: BP 112/31
[2019-02-23 09:30] VITALS: BP 111/46
[2019-02-23] MEDS ORDERED: LEVAQUIN 750 M750 MG PO (10:20)
[2019-02-23] MEDS ORDERED: NAMENDA 5 MG TAB5 M1 PO (10:20)
[2019-02-23] MEDS ORDERED: HALOPERIDOL 5 MG5 MG PO (10:20)
[2019-02-23] MEDS ORDERED: COLACE 100 MG100 MG PO (10:20)
[2019-02-23] MEDS ORDERED: CLOTRIMAZOLE 1%15 G1 TOP (10:20)
[2019-02-23] MEDS ORDERED: FLUCONAZOLE 10100 MG PO (10:20)
[2019-02-23] MEDS ORDERED: B-12500 MCG PO (10:20)
[2019-02-23] MEDS ORDERED: FOLIC ACID1 MG PO (10:20)
[2019-02-23] MEDS ORDERED: TRAZODONE HCL50 MG PO (10:20)
[2019-02-23] MEDS ORDERED: ZOLOFT100 MG PO (10:20)
[2019-02-23] MEDS ORDERED: GLIPIZIDE 5 MG T5 MG PO (10:20)
--- NOTE | 2019-02-23 17:47 | NUR ---
ASSUMED CARE OF PATIENT AT 0710 ON 02/23/19. AT 800 PATIENT LYING IN BED RESTING WITH EYES CLOSED. AT 0900 PATIENT AWAKE IN BED. PATIENT STATES "IM ALL WET BED AND ALL". PATIENT CLEANED UP. PATIENT CONCERNED ON MEDICATION SHE IS TAKEN AND ASKS TO KNOW MEDS BEING GIVEN. AFTER EXPLAINING MEDS PATIENT TAKES MEDS WHOLE WITHOUT DIFFICULTY. PATENT STATES NOT HUNGRY AND WISHES NOT TO EAT BREAKFAST. AT 1130 BS 65. PATIENT UP IN WC TO DAYROOM. ORANGE JUICE GIVEN, PATIENT WAITING FOR LUNCH AT THIS TIME WATCHING TV.
[2019-02-23 19:55] VITALS: BP 115/41
--- NOTE | 2019-02-24 00:23 | NUR ---
ASSUMED CARE ON 02/23/19 @ 1915. COOPERATED WITH ASSESSMENT, O X 3, CANNOT NAME PRESIDENT, DOES REMEMBER THAT HER FAVORITE PRESIDENT WAS MARINA. DENIES SI/HI, DENIES AVH, ANXIETY AND DEPRESSION. PROPELS SELF IN W/C. LAST BM ON 02/22, REFUSED DOCUSATE. FSBS 135, NO S/S INSULIN REQUIRED. MEDS TAKEN WHOLE WITH WATER. IN BED WITH EYES CLOSED AND RESPIRATIONS EVEN AND UNLABORED, BED IN LOW POSITION.
[2019-02-24 04:37] VITALS: BP 115/41
[2019-02-24 08:00] VITALS: BP 122/52
--- NOTE | 2019-02-24 08:33 | NUR ---
SW faxed d/c summary and orders to [facility]. central supply supervisor is still scheduled for 9am with [facility]. No concerns
[2019-02-24 08:57] VITALS: BP 122/52
--- NOTE | 2019-02-24 10:38 | NUR ---
ASSUMED CARE OF PATIENT AT 0710 ON 02/24/19. PATIENT AWAKE, DRESSED AND SITTING UP IN WC IN DAYROOM. 0800 PATIENT EATING BREAKFAST, SITTING QUIETLY AT TABLE. 0830 PATIENT TAKES MEDS WITHOUT DIFFICULTY. BLOOD SUGAR 107 AT 0730 NO INSULIN GIVEN. EM PHYSICIAN TOOK PATIENT TO ROOM VIA WC, ASSESSMENT DONE AT THIS TIME. PATIENT ALERT AND ORIENTED X3. LUNG SOUND CLEAR, NO C/O PAIN, DENIES SI/HI AND AVH. WHEN ASKED IF SHE WAS HAPPY TO BE GOING HOME TODAY PATIENT STATES" NOT SURE WHAT TO DO". I EXPLAINED TO HER THE PROCESS ON BEING DC'D AND TOLD HER I NOTIFIED HER DAUGHTER. PATIENT BECAME SAD AND SHAKING HEAD STATING " MY DAUGHTER DOES NOT LIKE ME". "SHE DOES NOT VISIT ME". I EXPLAINED THAT SHE SEEMED CONCERNED AND HAPPY YOU WERE RETURNING HOME. PATIENT TO DAYROOM VIA PERSONAL WC TO WAIT FOR TRANSPORT FOR D/C. 0903 PATIENT DC'D VIA PERSONAL WC TO MAIN MALL WITH A [employer] AIRSPACE CONTROL OFFICER AND MACHINE ACCOUNTANT.
--- NOTE | 2019-02-27 11:17 | D ---
[facility] [place] [address] DISCHARGE SUMMARY Name: LEVY PÉREZ Room #: 523B-B [facility] IN M.R.#: [id number] Admission: 02/13/19 Attend Phys: Rocco Hensley DO Discharge: 02/24/19 Date of : 34 Report #: [id number] THIS REPORT FOR: //name// CC: Rocco Hensley Jeyson Alfredo DATE OF SERVICE: 02/24/2019 INPATIENT PSYCHIATRIC DISCHARGE SUMMARY ATTENDING PHYSICIAN: Rocco Hensley DO SHEET METAL PRODUCTION WORKER AT THE TIME OF DISCHARGE: Ricky Alston MD DISCHARGE DIAGNOSES: Major neurocognitive disorder, likely Alzheimer's type with behavioral disturbance, modest improvement. The patient also has related diagnosis of unspecified psychosis that her daughter does not help her, who is involved in her affairs, and she was just quite upset due to that. LABORATORY DATA: Notable labs this admission, looks like grossly normal CBC with diff and without diff done. Chemistry, hemoglobin A1c is 6.3, lactic acid 3.3, CK 375, ALT 24. Vitamin D 27.6. TSH 1.803. Urinalysis is negative. DISCHARGE MEDICATIONS: Discontinue levofloxacin and fluconazole. Continue sertraline 100 mg p.o. daily, trazodone 50 mg p.o. at bedtime, Haldol 5 mg p.o. b.i.d., memantine 10 mg p.o. b.i.d., glipizide 2.5 mg p.o. b.i.d. with meals, clotrimazole antifungal applied 3 times a day and may continue x 1 week, cyanocobalamin 1000 mcg p.o. daily, folic acid 1 mg p.o. daily for supplementation, metoprolol 50 mg p.o. b.i.d. for hypertension, amlodipine 10 mg p.o. daily for hypertension, lisinopril 40 mg p.o. daily for hypertension. DISPOSITION: The patient is [facility]. REASON FOR ADMISSION: Threatening statements, suicidal ideation. HOSPITAL COURSE: Medications have been given throughout her hospital course. The patient was admitted to Geriatric-Psychiatry Unit. She has a fixed delusion that her daughter does not help her; however interestingly, the daughter is very involved, she certainly does. The patient's bhevaior is often isolating. Basically, maximum therapeutic benefits were reached. Again, I was not present to do mental status exam for discharge as this author had jury duty. VITAL SIGNS: Temperature 36.5, pulse 59, respirations 19, BP 122/52, O2 sat 93%. [address] [address] DISCHARGE SUMMARY Name: LEVY PÉREZ Room #: 523B-B [facility] IN M.R.#: [id number] Admission: 02/13/19 Attend Phys: Rocco Hensley DO Discharge: 02/24/19 Date of : 34 Report #: [id number] PROGNOSIS: Likely poor. <ELECTRONICALLY SIGNED> By: Rocco Hensley DO 02/27/19 1117 [id number] Rocco Hensley DO /nt
== END 2019-02-24 09:15 | DRG 57 ==
LOC: SBH 18:35
PROVIDERS: Internal Medicine; ADMIT Psychiatry & Neurology Psychiatry
DX: G30.9 Alzheimer's disease, unspecified (principal); F01.51 Vascular dementia, unspecified severity, with behavioral disturbance; N17.9 Acute kidney failure, unspecified; N18.3 Chronic kidney disease, stage 3 (moderate); F32.2 Major depressive disorder, single episode, severe without psychotic features; N39.0 Urinary tract infection, site not specified; I12.9 Hypertensive chronic kidney disease with stage 1 through stage 4 chronic kidney disease, or unspecified chronic kidney disease; B96.20 Unspecified Escherichia coli [E. coli] as the cause of diseases classified elsewhere; E11.22 Type 2 diabetes mellitus with diabetic chronic kidney disease; Z96.652 Presence of left artificial knee joint; M19.90 Unspecified osteoarthritis, unspecified site; E78.5 Hyperlipidemia, unspecified; K21.9 Gastro-esophageal reflux disease without esophagitis; R29.6 Repeated falls; Z66 Do not resuscitate; K80.20 Calculus of gallbladder without cholecystitis without obstruction; Z79.4 Long term (current) use of insulin; Z79.899 Other long term (current) drug therapy; Z87.81 Personal history of (healed) traumatic fracture; Z91.81 History of falling; Z88.1 Allergy status to other antibiotic agents; Z96.643 Presence of artificial hip joint, bilateral
CPT/HCPCS: 10880